=== PATIENT | male | born 1935 | race Caucasian/White ===

== ENCOUNTER 2016-11-05 16:17 | Inpatient (IN) | payer OTHER, MEDICARE ==
[2016-11-05] VITALS (10 sets, daily range): BP systolic 134–169; BP diastolic 57–70; PULSE 56–80; RESP 16–18; TEMP 97.1–98.2; O2SAT 95–99
[~2016-11-05] VITALS: Ht 170.2 cm; Wt 57.9 kg
[2016-11-05] MEDS ORDERED: DOXA1TAB43 PO (16:43)
[2016-11-05] MEDS ORDERED: LOSA100T PO (16:43)
[2016-11-05] MEDS ORDERED: DILT-64 PO (16:43)
--- NOTE | 2016-11-05 16:55 | PD ---
HPI Chief Complaint: Abnormal Results Time Seen by Provider: 16:50 Travel History International Travel<30 days: No Contact w/Intl Traveler<30days: No Traveled to known affect area: No History of Present Illness HPI 81-year-old male presents to the emergency department sent by his transit authority police officer, Dr. Whitehead, for hemoglobin of 6.2, GFR of 8. The patient states that he has felt "drugged" for quite a while. He denies any new symptoms. He does report history of bipolar blood and dark stools, but states this is an ongoing issue from hemorrhoids. The patient denies any fevers. No chest pain or shortness breath. No abdominal pain. No nausea or vomiting. He does complain of constipation. No diarrhea. Patient states he has been seeing Dr. Whitehead for kidney disease, but was told that he will probably need dialysis. PFSH Past Medical History Hypertension: Yes Inguinal Hernia: Yes Renal Failure: Yes (chronic kidney disease) Social History Alcohol Use: Yes (occassional) Tobacco Use: Yes Substance Use: No Allergies-Medications (Allergen,Severity, Reaction): Coded Allergies: No Known Allergies (Unverified , 11/05/16) Reported Meds & Prescriptions Reported Meds & Active Scripts Active Reported Diltiazem CD 24 HR 240 Mg Caper 240 Mg PO DAILY Losartan (Losartan Potassium) 100 Mg Tab 100 Mg PO DAILY Doxazosin (Doxazosin Mesylate) 8 Mg Tab 8 Mg PO DAILY Review of Systems Except as stated in HPI: all other systems reviewed are Neg Physical Exam Narrative GENERAL: Well-nourished, well-developed elderly male patient, afebrile. SKIN: Focused skin assessment warm/dry. HEAD: Normocephalic. Atraumatic. EYES: No scleral icterus. No injection or drainage. NECK: Supple, trachea midline. No JVD or lymphadenopathy. CARDIOVASCULAR: Regular rate and rhythm without murmurs, gallops, or rubs. RESPIRATORY: Breath sounds equal bilaterally. No accessory muscle use. Lungs sounds are clear to auscultation. GASTROINTESTINAL: Abdomen soft, non-tender, nondistended. MUSCULOSKELETAL: No cyanosis, or edema. BACK: Nontender without obvious deformity. No CVA tenderness. RECTAL EXAM: No masses or tenderness, stool is brown. Hemoccult is positive. Data Data Last Documented VS Vital Signs Date Time Temp Pulse Resp B/P Pulse Ox O2 Delivery O2 Flow Rate FiO2 11/05/16 16:51 56 18 146/63 95 Room Air 11/05/16 16:19 98.2 Orders Electrocardiogram (11/05/16 16:46) Complete Blood Count With Diff (11/05/16 16:46) Comprehensive Metabolic Panel (11/05/16 16:46) Magnesium (Mg) (11/05/16 16:46) Act Partial Throm Time (Ptt) (11/05/16 16:46) Prothrombin Time / Inr (Pt) (11/05/16 16:46) Ecg Monitoring (11/05/16 16:46) Iv Access Insert/Monitor (11/05/16 16:46) Oximetry (11/05/16 16:46) Sodium Chloride 0.9% Flush (Ns Flush) (11/05/16 17:00) Type And Screen (11/05/16 16:46) Pantoprazole Inj (Protonix Inj) (11/05/16 17:00) Red Blood Cells (Rbc) (11/05/16 17:57) Blood Product Administration .UPON TRANSFUSION (11/05/16 17:57) Sodium Chlor 0.9% 250 Ml Inj (Ns 250 Ml (11/05/16 18:00) Invasive Rad Dept Consult (11/05/16 ) Npo After Midnight W/ Po Meds (11/05/16 Dinner) Consult Nephrology (11/05/16 ) Admit To Inpatient (11/05/16 ) Vital Signs (Adult) Q4H (11/05/16 18:11) Activity Oob With Assistance (11/05/16 18:11) Diet Heart Healthy (11/05/16 Dinner) Sodium Chloride 0.9% Flush (Ns Flush) (11/05/16 18:15) Sodium Chloride 0.9% Flush (Ns Flush) (11/05/16 21:00) Acetaminophen (Tylenol) (11/05/16 18:15) Ondansetron Inj (Zofran Inj) (11/05/16 18:15) Basic Metabolic Panel (Bmp) (11/06/16 06:00) Complete Blood Count With Diff (11/06/16 06:00) Resp Oxygen Ritchie C Titrat 1-4 L (11/05/16 ) Scd Bilateral/Knee High MAK.BID (11/05/16 18:11) Naloxone Inj (Narcan Inj) (11/05/16 18:15) Docusate Sodium-Senna (Cara-Colace) (11/05/16 21:00) Magnesium Hydroxide Liq (Milk Of Magnesi (11/05/16 18:15) Sennosides (Senokot) (11/05/16 18:15) Bisacodyl Supp (Dulcolax Supp) (11/05/16 18:15) Lactulose Liq (Lactulose Liq) (11/05/16 18:15) Inpatient Certification (11/05/16 ) Admit Order (Ed Use Only) (11/05/16 18:13) Labs Laboratory Tests Test 11/05/16 17:00 White Blood Count 7.0 TH/MM3 Red Blood Count 2.36 MIL/MM3 Hemoglobin 5.8 GM/DL Hematocrit 18.6 % Mean Corpuscular Volume 78.8 FL Mean Corpuscular Hemoglobin 24.8 PG Mean Corpuscular Hemoglobin 31.5 % Concent Red Cell Distribution Width 18.6 % Platelet Count 269 TH/MM3 Mean Platelet Volume 9.2 FL Neutrophils (%) (Auto) 69.9 % Lymphocytes (%) (Auto) 19.1 % Monocytes (%) (Auto) 8.5 % Eosinophils (%) (Auto) 1.0 % Basophils (%) (Auto) 1.5 % Neutrophils # (Auto) 4.9 TH/MM3 Lymphocytes # (Auto) 1.3 TH/MM3 Monocytes # (Auto) 0.6 TH/MM3 Eosinophils # (Auto) 0.1 TH/MM3 Basophils # (Auto) 0.1 TH/MM3 CBC Comment AUTO DIFF Prothrombin Time 11.5 SEC Prothromb Time International 1.0 RATIO Ratio Activated Partial 23.3 SEC Thromboplast Time Sodium Level 135 MEQ/L Potassium Level 4.7 MEQ/L Chloride Level 105 MEQ/L Carbon Dioxide Level 19.0 MEQ/L Anion Gap 11 MEQ/L Blood Urea Nitrogen 97 MG/DL Creatinine 5.60 MG/DL Estimat Glomerular Filtration 10 ML/MIN Rate Random Glucose 117 MG/DL Calcium Level 8.6 MG/DL Magnesium Level 3.2 MG/DL Total Bilirubin 0.2 MG/DL Aspartate Amino Transf 9 U/L (AST/SGOT) Alanine Aminotransferase 17 U/L (ALT/SGPT) Alkaline Phosphatase 75 U/L Total Protein 6.7 GM/DL Albumin 3.4 GM/DL MDM Medical Decision Making Medical Screen Exam Complete: Yes Emergency Medical Condition: Yes Medical Record Reviewed: Yes Differential Diagnosis GI bleed versus anemia of chronic disease versus renal failure Narrative Course 81-year-old male presents to the emergency department sent by his transit authority police officer, Dr. Whitehead. EKG, CBC, CMP, magnesium, PTT, PTT/INR, type and screen are ordered and pending. Patient is given Protonix 40 mg IV. EKG shows Sinus bradycardia, HR 55, no acute ST changes. CBC shows hemoglobin of 5.8, hematocrit 18.6. CMP shows the BUN 97, creatinine 5.60. Magnesium is 3.2. Coags show no acute abnormality. I spoke with Dr. Whitehead who recommended admission, consult IR for permcath placement in the AM. He would like the patient to receive 1 unit PRBCs now and will receive the rest at dialysis tomorrow. The patient is to be NPO after midnight. [facility] is paged for admission. Dr. Claudio accepted admission. [facility] Point of Care Internal Pos. & Neg. Controls: Passed Fecal Specimen Occult Blood: Positive Diagnosis Primary Impression: Kidney failure, acute Qualified Code: N17.9 - Acute renal failure, unspecified acute renal failure type Additional Impression: Anemia Qualified Code: D64.89 - Anemia due to other cause, not classified Admitting Information Admitting Physician Requests: Admit Judie Frias Nov 05, 2016 16:55
[2016-11-05] MEDS ORDERED: SODIUM CHLORIDE 0.9% FLUSH 10 ML FLUSH IVF PRN (17:00)
[2016-11-05] MEDS ORDERED: PANTOPRAZOLE SODIUM 40 MG VIAL IV PUSH ONE (17:00)
[2016-11-05 17:40] LABS: AUTOMATED NEUTROPHIL # 4.9 TH/MM3 (1.8-7.7); BASOPHIL # 0.1 TH/MM3 (0-0.2); BASOPHIL % 1.5 % (0.0-2.0); EOSINOPHIL # 0.1 TH/MM3 (0-0.4); LYMPH % 19.1 % (9.0-44.0); LYMPHOCYTE # 1.3 TH/MM3 (1.0-4.8); MEAN CELL VOLUME 78.8 FL (80.0-100.0); MEAN CORPUSCULAR HEMOGLOBIN 24.8 PG (27.0-34.0); MEAN CORPUSCULAR HGB CONC 31.5 % (32.0-36.0); MONO % 8.5 % (0.0-8.0); NEUT % 69.9 % (16.0-70.0); PLATELET COUNT 269 TH/MM3 (150-450); RED BLOOD COUNT 2.36 MIL/MM3 (4.50-5.90); RED CELL DISTRIBUTION WIDTH 18.6 % (11.6-17.2)
[2016-11-05 17:43] LABS: HEMO FLAGS AUTO DIFF
[2016-11-05 17:44] LABS: HEMATOCRIT 18.6 % (39.0-51.0)
[2016-11-05 17:48] LABS: APTT (PATIENT) 23.3 SEC (24.3-30.1); PROTHROMBIN TIME - PATIENT 11.5 SEC (9.8-11.6)
[2016-11-05 17:56] LABS: ANION GAP 11 MEQ/L (5-15); AST (GOT) 9 U/L (15-37); BLOOD UREA NITROGEN 97 MG/DL (7-18); CHLORIDE 105 MEQ/L (98-107); GLOMERULAR FILTRATION RATE 10 ML/MIN (>89); MAGNESIUM 3.2 MG/DL (1.5-2.5); POTASSIUM 4.7 MEQ/L (3.5-5.1); SODIUM (NA) 135 MEQ/L (136-145)
[2016-11-05 17:57] LABS: ALT (GPT) 17 U/L (12-78)
[2016-11-05 18:00] LABS: ALKALINE PHOSPHATASE 75 U/L (45-117); TOTAL BILIRUBIN ADULT 0.2 MG/DL (0.2-1.0)
[2016-11-05] MEDS ORDERED: SODIUM CHLOR 0.9% 250 ML INJ 250 ML IV ONE (18:00)
[2016-11-05] MEDS ORDERED: SODIUM CHLORIDE 0.9% FLUSH 10 ML FLUSH IV FLUSH PRN (18:15)
[2016-11-05] MEDS ORDERED: SENNOSIDES 8.6 MG TAB PO PRN (18:15)
[2016-11-05] MEDS ORDERED: NALOXONE HCL 0.4 MG/ML AMP IV PRN (18:15)
[2016-11-05] MEDS ORDERED: ACETAMINOPHEN 325 MG TAB PO PRN (18:15)
[2016-11-05] MEDS ORDERED: LACTULOSE SYRUP 20 GM/30 ML CUP PO PRN (18:15)
[2016-11-05] MEDS ORDERED: BISACODYL 10 MG SUPP RECTAL PRN (18:15)
[2016-11-05] MEDS ORDERED: ONDANSETRON HCL 4 MG/2 ML VIAL IVP PRN (18:15)
[2016-11-05] MEDS ORDERED: MAGNESIUM HYDROXIDE SUSP 30 ML CUP PO PRN (18:15)
[2016-11-05 18:22] LABS: SCAN/DIFF AUTO DIFF CONFIRMED
--- NOTE | 2016-11-05 19:38 | HHI.HP ---
HPI Service [facility] Primary Care Physician Hari Huston MD Admission Diagnosis renal failure, anemia Diagnoses: Chief Complaint: Symptomatic anemia. Travel History International Travel<30 Days: No Contact w/Intl Traveler <30 Da: No Traveled to Known Affected Are: No History of Present Illness Mr. Calderon is a pleasant 81 year old male with a history of CKD who presented to the ED on the advise of his certified travel counselor due to hemoglobin around 6 and GFR 8. Patient reports several weeks of fatigue but particularly in the past 7 days or so. He reports bloody stool which he attributes to hemorrhoids. He denies any fever but reports chills. He also repots some shortness of breath but no chest pain. He denies any cough, abdominal pain. On arrival, Na 135, K 4.7, BUN 97, Cr. 5.6, eGFR 10. WBC 7, Hgb 5.8. Temp 98.2, Pulse 80, Resp rate 16, BP 135 /57, O2 sat 98% on room air. Review of Systems Except as stated in HPI: all other systems reviewed are Neg Past Family Social History Past Medical History ESRD HTN Anemia Past Surgical History Hernia repair 2009 Reported Medications Diltiazem CD 24 HR 240 Mg Caper 240 Mg PO DAILY Losartan (Losartan Potassium) 100 Mg Tab 100 Mg PO DAILY Doxazosin (Doxazosin Mesylate) 8 Mg Tab 8 Mg PO DAILY Allergies: Coded Allergies: No Known Allergies (Unverified , 11/05/16) Family History Brother from cancer at the age of 16. Social History Uses alcohol occasionally. Smokes 1 ppd. Physical Exam Vital Signs Vital Signs Date Time Temp Pulse Resp B/P Pulse Ox O2 Delivery O2 Flow Rate FiO2 11/05/16 19:25 98.1 61 16 134/63 97 Room Air 11/05/16 19:20 98.0 58 16 137/64 96 Room Air 11/05/16 18:19 96 21 11/05/16 16:51 56 18 146/63 95 Room Air 11/05/16 16:35 68 16 97 Room Air 11/05/16 16:19 98.2 80 16 135/57 98 Physical Exam GENERAL: This is a well-nourished, well-developed patient, in no apparent distress. Appears somewhat pale. SKIN: No rashes, ecchymoses or lesions. Warm and dry. HEAD: Atraumatic. Normocephalic. No temporal or scalp tenderness. EYES: Pupils equal round and reactive. No injection or drainage. ENT: Nose without bleeding, purulent drainage or septal hematoma. Airway patent. NECK: Trachea midline. No lymphadenopathy. Supple, nontender, no meningeal signs. CARDIOVASCULAR: Regular rate and rhythm without murmurs, gallops, or rubs. No JVD. RESPIRATORY: Clear to auscultation. Breath sounds equal bilaterally. No wheezes , rales, or rhonchi. GASTROINTESTINAL: Abdomen soft, non-tender, nondistended. No guarding. MUSCULOSKELETAL: Extremities without clubbing, cyanosis, or edema. NEUROLOGICAL: Awake and alert. Cranial nerves II through XII intact. No focal neurological deficits. Normal speech. Laboratory Laboratory Tests Test 11/05/16 11/05/16 17:00 18:05 White Blood Count 7.0 Red Blood Count 2.36 Hemoglobin 5.8 Hematocrit 18.6 Mean Corpuscular Volume 78.8 Mean Corpuscular Hemoglobin 24.8 Mean Corpuscular Hemoglobin 31.5 Concent Red Cell Distribution Width 18.6 Platelet Count 269 Mean Platelet Volume 9.2 Neutrophils (%) (Auto) 69.9 Lymphocytes (%) (Auto) 19.1 Monocytes (%) (Auto) 8.5 Eosinophils (%) (Auto) 1.0 Basophils (%) (Auto) 1.5 Neutrophils # (Auto) 4.9 Lymphocytes # (Auto) 1.3 Monocytes # (Auto) 0.6 Eosinophils # (Auto) 0.1 Basophils # (Auto) 0.1 CBC Comment AUTO DIFF Differential Comment AUTO DIFF CONFIRMED Prothrombin Time 11.5 Prothromb Time International 1.0 Ratio Activated Partial 23.3 Thromboplast Time Sodium Level 135 Potassium Level 4.7 Chloride Level 105 Carbon Dioxide Level 19.0 Anion Gap 11 Blood Urea Nitrogen 97 Creatinine 5.60 Estimat Glomerular Filtration 10 Rate Random Glucose 117 Calcium Level 8.6 Magnesium Level 3.2 Total Bilirubin 0.2 Aspartate Amino Transf 9 (AST/SGOT) Alanine Aminotransferase 17 (ALT/SGPT) Alkaline Phosphatase 75 Total Protein 6.7 Albumin 3.4 Blood Type O POSITIVE O POSITIVE Antibody Screen NEGATIVE Blood Bank Comment Crossmatch Leukocyte-Reduced Red Blood Cells Result Diagram: 11/05/16 1700 11/05/16 1700 Assessment and Plan Problem List: (1) Symptomatic anemia ICD Code: D64.9 Status: Acute (2) Anemia in chronic kidney disease (CKD) ICD Code: N18.9 Status: Acute (3) ESRD (end stage renal disease) ICD Code: N18.6 Status: Acute (4) Tobacco abuse ICD Code: Z72.0 Status: Acute Assessment and Plan Mr. Calderon is a pleasant 81 year old male with a history of CKD, probably at least stage IV who was sent to the ED by his certified travel counselor's office after blood work indicated anemia with Hgb around 6 and GFR below 10. Patient reports fatigue for the last several weeks, especially pronounced in the last one week. - Symptomatic anemia - Anemia in CKD - Patient will receive one unit of PRBCs. - IR consult for Permacath placement and possibly additional transfusion on . - Suspected CKD stage IV or higher. - Acute ESRD - GFR 10. - Nephrology consult pending. - Permacath tomorrow and likely dialysis tomorrow. - Hypertension - Will initiate Nifedipine 30mg Qday. - If BP continues to be elevated, we can use clonidine 0.1mg TID PRN. - Tobacco abuse - Patient was counselled. However, he appears to be content with his smoking habits. Full code. SCDs. Will consider heparin SQ after Permacath placement. Physician Certification 2 Midnight Certification Type: Admission for Inpatient Services Order for Inpatient Services The services are ordered in accordance with Medicare regulations or non- Medicare payer requirements, as applicable. In the case of services not specified as inpatient-only, they are appropriately provided as inpatient services in accordance with the 2-midnight benchmark. Estimated LOS (days): 2 days is the estimated time the patient will need to remain in the hospital, assuming treatment plan goals are met and no additional complications. Post-Hospital Plan: Home Alexia Claudio DO Nov 05, 2016 19:37
[2016-11-05] MEDS: SODIUM CHLORIDE 0.9% FLUSH 10 ML FLUSH IV FLUSH SCH (21:00)
[2016-11-05] MEDS: DOCUSATE SODIUM 50 MG/SENNA 8.6 MG TAB PO SCH (23:29)
[2016-11-06] VITALS (7 sets, daily range): BP systolic 117–164; BP diastolic 58–70; PULSE 66–108; RESP 14–17; TEMP 96.3–97.9; O2SAT 95–97
[2016-11-06 07:17] LABS: AUTOMATED NEUTROPHIL # 4.9 TH/MM3 (1.8-7.7); BASOPHIL # 0.1 TH/MM3 (0-0.2); BASOPHIL % 1.3 % (0.0-2.0); EOSINOPHIL # 0.6 TH/MM3 (0-0.4); LYMPH % 19.3 % (9.0-44.0); LYMPHOCYTE # 1.5 TH/MM3 (1.0-4.8); MEAN CELL VOLUME 78.6 FL (80.0-100.0); MEAN CORPUSCULAR HEMOGLOBIN 26.1 PG (27.0-34.0); MEAN CORPUSCULAR HGB CONC 33.2 % (32.0-36.0); MONO % 9.7 % (0.0-8.0); NEUT % 62.7 % (16.0-70.0); PLATELET COUNT 242 TH/MM3 (150-450); RED BLOOD COUNT 2.53 MIL/MM3 (4.50-5.90); RED CELL DISTRIBUTION WIDTH 17.7 % (11.6-17.2); WHITE BLOOD COUNT 7.9 TH/MM3 (4.0-11.0)
[2016-11-06 07:22] LABS: HEMO FLAGS DIFF FINAL
[2016-11-06 07:27] LABS: HEMATOCRIT 19.9 % (39.0-51.0)
[2016-11-06 07:41] LABS: BICARBONATE 23.5 MEQ/L (21.0-32.0); POTASSIUM 4.4 MEQ/L (3.5-5.1)
[2016-11-06] MEDS ORDERED: SODIUM CHLOR 0.9% 250 ML INJ 250 ML IV ONE (07:45)
[2016-11-06] MEDS ORDERED: ACETAMINOPHEN 325 MG TAB PO PRN ×2 (07:45→10:45)
[2016-11-06] MEDS ORDERED: diphenhydrAMINE HCL 25 MG CAP PO PRN ×2 (07:45→10:45)
[2016-11-06] MEDS: DOCUSATE SODIUM 50 MG/SENNA 8.6 MG TAB PO SCH ×2 (08:17→19:47)
[2016-11-06] MEDS: NIFEdipine 30 MG SUSTAINED RELEASE TAB PO SCH (08:17)
[2016-11-06] MEDS: SODIUM CHLORIDE 0.9% FLUSH 10 ML FLUSH IV FLUSH SCH ×2 (08:29→19:48)
[2016-11-06] MEDS ORDERED: VANCOMYCIN INJ 1,000 MG in SODIUM CHLOR 0.9% 250 ML INJ 250 ML IV SCH (08:30)
[2016-11-06] MEDS ORDERED: ceFAZolin 2 GM PREMIX 50 ML IV SCH (08:30)
[2016-11-06] MEDS ORDERED: SODIUM CHLOR 0.9% 1000 ML INJ 1,000 ML IV PRN ×3 (10:39)
--- NOTE | 2016-11-06 10:39 | PD.CONS ---
[facility] Service nephrology Consult Requested By Rodriguez Reason for Consult Renal failure, needs dialysis Primary Care Physician Hari Huston MD History of Present Illness This is a 81 y/o male who we were following for CKD stage 4. He was seen in October of 2015, then was lost to follow up until recently. He has lab work outpatient that showed he had reached CKD 5 and had severe anemia with Hb around 5, therefore we referred for admission. He is reporting extreme fatigue, itching, nausea, constipation. He lives alone and has been so weak unable to care for self. Since arrival he has received one unit PRBC. We were consulted for renal management and to initiate dialysis. He is a full code. (Elizabeth Foley) Review of Systems Constitutional: COMPLAINS OF: Fatigue, Change in appetite, DENIES: Fever Eyes: DENIES: Blurred vision Respiratory: DENIES: Shortness of breath Cardiovascular: DENIES: Chest pain Gastrointestinal: COMPLAINS OF: Black stools, Constipation, DENIES: Abdominal pain Integumentary: COMPLAINS OF: Pruritus (Elizabeth Foley) Past Family Social History Allergies: Coded Allergies: No Known Allergies (Unverified , 11/05/16) Past Medical History CKD Stage IV HTN Anemia Past Surgical History Hernia Reported Medications Diltiazem CD 24 HR 240 Mg Caper 240 Mg PO DAILY Losartan (Losartan Potassium) 100 Mg Tab 100 Mg PO DAILY Doxazosin (Doxazosin Mesylate) 8 Mg Tab 8 Mg PO DAILY Active Ordered Medications Current Medications Medications (Trade) Dose Ordered Sig/Ramiro Route Start Time Stop Time Status Last Admin (NS 250 ml Inj) 250 ml @ 15 mls/hr ONCE ONCE IV 11/05/16 18:00 11/06/16 10:39 11/05/16 19:26 (NS Flush) 2 ml UNSCH PRN IV FLUSH 11/05/16 18:15 (NS Flush) 2 ml BID IV FLUSH 11/05/16 21:00 11/06/16 08:29 (Tylenol) 650 mg Q4H PRN PO 11/05/16 18:15 (Zofran Inj) 4 mg Q6H PRN IVP 11/05/16 18:15 (Narcan Inj) 0.4 mg UNSCH PRN IV 11/05/16 18:15 (Cara-Colace) 1 tab BID PO 11/05/16 21:00 11/06/16 08:17 (Milk Of Magnesia Liq) 30 ml Q12H PRN PO 11/05/16 18:15 11/06/16 08:19 (Senokot) 17.2 mg Q12H PRN PO 11/05/16 18:15 11/06/16 08:18 (Dulcolax Supp) 10 mg DAILY PRN RECTAL 11/05/16 18:15 (Lactulose Liq) 30 ml DAILY PRN PO 11/05/16 18:15 11/06/16 08:19 Nifedipine 30 mg 30 mg DAILY PO 11/06/16 09:00 11/06/16 08:17 (NS 250 ml Inj) 250 ml @ 15 mls/hr ONCE ONCE IV 11/06/16 07:45 11/07/16 00:24 (Tylenol) 650 mg Q4H PRN PO 11/06/16 07:45 11/06/16 11:46 (Benadryl) 25 mg Q4H PRN PO 11/06/16 07:45 11/06/16 11:46 Family History No hx of renal disorders Social History Non smoking , lives alone Has a son that is local ambulatory but needs assistance full code retired (Elizabeth Foley) Physical Exam Vital Signs Vital Signs Date Time Temp Pulse Resp B/P Pulse Ox O2 Delivery O2 Flow Rate FiO2 11/06/16 09:43 96 21 11/06/16 08:00 96.3 66 14 160/70 95 11/06/16 04:07 97.3 68 16 151/70 95 11/05/16 23:45 97.1 58 16 159/70 97 11/05/16 21:03 98.2 61 16 169/70 99 11/05/16 20:25 98 11/05/16 19:45 64 16 134/62 96 Room Air 11/05/16 19:35 61 16 135/60 97 Room Air 11/05/16 19:25 98.1 61 16 134/63 97 Room Air 11/05/16 19:20 98.0 58 16 137/64 96 Room Air 11/05/16 18:19 96 21 11/05/16 16:51 56 18 146/63 95 Room Air 11/05/16 16:35 68 16 97 Room Air 11/05/16 16:19 98.2 80 16 135/57 98 Physical Exam Elderly male, awake and alert no neuro deficit Lungs: clear CV: S1/S2, regular rate and rhythm Abd: soft, non tender, normal bowel sounds Ext: no edema, pulses adequate Laboratory Laboratory Tests Test 11/05/16 11/05/16 11/06/16 11/06/16 17:00 18:05 06:35 07:43 White Blood Count 7.0 7.9 Red Blood Count 2.36 2.53 Hemoglobin 5.8 6.6 Hematocrit 18.6 19.9 Mean Corpuscular Volume 78.8 78.6 Mean Corpuscular Hemoglobin 24.8 26.1 Mean Corpuscular Hemoglobin 31.5 33.2 Concent Red Cell Distribution Width 18.6 17.7 Platelet Count 269 242 Mean Platelet Volume 9.2 8.8 Neutrophils (%) (Auto) 69.9 62.7 Lymphocytes (%) (Auto) 19.1 19.3 Monocytes (%) (Auto) 8.5 9.7 Eosinophils (%) (Auto) 1.0 7.0 Basophils (%) (Auto) 1.5 1.3 Neutrophils # (Auto) 4.9 4.9 Lymphocytes # (Auto) 1.3 1.5 Monocytes # (Auto) 0.6 0.8 Eosinophils # (Auto) 0.1 0.6 Basophils # (Auto) 0.1 0.1 CBC Comment AUTO DIFF DIFF FINAL Differential Comment AUTO DIFF CONFIRMED Prothrombin Time 11.5 Prothromb Time International 1.0 Ratio Activated Partial 23.3 Thromboplast Time Sodium Level 135 141 Potassium Level 4.7 4.4 Chloride Level 105 109 Carbon Dioxide Level 19.0 23.5 Anion Gap 11 9 Blood Urea Nitrogen 97 92 Creatinine 5.60 4.98 Estimat Glomerular Filtration 10 11 Rate Random Glucose 117 85 Calcium Level 8.6 8.5 Magnesium Level 3.2 Total Bilirubin 0.2 Aspartate Amino Transf 9 (AST/SGOT) Alanine Aminotransferase 17 (ALT/SGPT) Alkaline Phosphatase 75 Total Protein 6.7 Albumin 3.4 Blood Type O POSITIVE O POSITIVE O POSITIVE Antibody Screen NEGATIVE Blood Bank Comment Crossmatch Leukocyte-Reduced Leukocyte-Reduced Red Blood Red Blood Cells Cells (Elizabeth Foley) Result Diagram: 11/06/16 0635 11/06/1635 Assessment and Plan Problem List: (1) ESRD (end stage renal disease) Plan: He has reached ESRD and is in need of starting dialysis we discussed different modalities but the patient is concerned that he is unable to perform PD on his own therefore we will begin hemodialysis IR consulted for Permcath today HD today, repeat tomorrow he is not fluid overloaded consult vascular for AVF placement, vein mapping ordered, avoid right arm procedures/IV sticks check phosphorus level in am (2) Anemia Plan: multifactorial, suspected anemia of chronic disease microcytic, check iron profile transfusion ordered, give during dialysis if not given already likely will need to rule out GI bleeding follow Hb begin Epogen with dialysis He also may have plasma cell dyscrasia per urine immunofixation performed outpatient may need hematology evaluation this hospitalization (3) HTN (hypertension) Plan: continue home medications (Elizabeth Foley) Assessment and Plan patient was seen and examined. Long discussion with the patient. Severe anemia ( microcytic) is noted. Rule out iron deficiency and occult bleeding. He appears to have symptoms of uremia. Initiate dialysis. Discussed with Dr. Amaral regarding AVF placement. Patient thinks that he is unable to do PD. (Anuj Whitehead MD) Problem Qualifiers (1) Anemia: Qualified Code: D64.89 - Anemia due to other cause, not classified Elizabeth Foley Nov 06, 2016 10:39 Anuj Whitehead MD Nov 06, 2016 14:36
[2016-11-06] MEDS ORDERED: GELATIN 12 MM/7 MM FOAM TOP PRN (10:45)
[2016-11-06] MEDS ORDERED: MANNITOL 12.5 GM/50 ML VIAL IV PRN (10:45)
[2016-11-06] MEDS ORDERED: cloNIDine HCL 0.1 MG TAB PO PRN (10:45)
[2016-11-06] MEDS ORDERED: NITROGLYCERIN 0.4 MG SL 25 TABS/BTL SL PRN (10:45)
[2016-11-06] MEDS ORDERED: ALBUMIN HUMAN 25% 25 GM/100 ML BAGP IV PRN (10:45)
[2016-11-06] MEDS ORDERED: ONDANSETRON HCL 4 MG/2 ML VIAL IV PRN (10:45)
[2016-11-06] MEDS ORDERED: SODIUM CHLORIDE 0.9% FLUSH 10 ML FLUSH IV FLUSH PRN (10:45)
[2016-11-06] MEDS ORDERED: HEPARIN SODIUM - IV 10,000 UNITS/10 ML VIAL IVF PRN (10:45)
[2016-11-06] MEDS ORDERED: LIDOCAINE 1%/EPINEPHrine 1:100,000 SOLN 20 ML VIAL ONE (11:15)
[2016-11-06] MEDS ORDERED: SODIUM CHLORIDE 0.9% FLUSH 10 ML FLUSH IVF PRN (11:45)
[2016-11-06] MEDS ORDERED: HEPARIN SODIUM - IV 2,000 UNITS/2 ML VIAL IV FLUSH PRN (11:45)
--- NOTE | 2016-11-06 11:47 | PD.RAD ---
Post Procedure Progress Note Pre Procedure Diagnosis: (1) Kidney failure, acute Post Procedure Diagnosis: (1) Kidney failure, acute Procedure Date: Nov 06, 2016 Supervising Radiologist: Jacobo Crowell Proceduralist/Assist: Ambar Pat RT(R), RT Sctot(R)() Anesthesia: Local Plan of Activity Patient to Unit: Nursing Unit Patient Condition: Good See PACS Report for procedural detail/treatment Jacobo Crowell MD Nov 06, 2016 11:47
[2016-11-06] MEDS: EPOETIN ALFA 10,000 UNITS/ML VIAL IV PRN (13:51)
[2016-11-06] MEDS: GENTAMICIN SULFATE (DIALYSIS USE ONLY) 20 MG/2 ML VIAL IV PRN (13:52)
[2016-11-06] MEDS: HEPARIN SODIUM - IV 10,000 UNITS/10 ML VIAL PRN (13:52)
--- NOTE | 2016-11-06 14:01 | RADRPT ---
EXAM DATE/TIME: 11/06/2016 11:25 [facility] COMPARISON: No previous studies available for comparison. INDICATIONS : Patient with history of end-stage renal disease in need of tunnelled dialysis catheter placement. MEDICAL HISTORY : ESRD, CKD, HTN, Anemia SURGICAL HISTORY : Hernia repair 2009 ENCOUNTER: Initial ACUITY: 1 week PAIN SCORE: 0/10 FLUORO TIME: 0.9 minutes IMAGE SERIES: 0 ACCESS: Right internal jugular vein Prophylactic antibiotics were administered with appropriate pre-procedure timing. Vancomycin within 2 hours of procedure, Ancef (or alternative) within 1 hour of procedure. DEVICE: 1. 15 Vietnamese dual lumen 23 cm العراقي II Plus catheter PROCEDURE : 1. Ultrasound-guided venipuncture. 2. PermaCath placement. 3. Conscious sedation with continuous EKG and oximetry monitoring. The risks, benefits and alternatives to the procedure were explained and verbal and written consent w as obtained. The site was prepped in sterile fashion. Full sterile technique was used, including ca p, mask, sterile gloves and gown and a large sterile sheet. Hand hygiene and 2% chlorhexidine and/or betadine/alcohol prep was utilized per protocol for cutaneous antisepsis. The skin and subcutaneous tissues were infiltrated with local anesthetic solution. With ultrasound and fluoroscopic guidance a dermatotomy was created over the prescribed vein. A micr opuncture set was used to access the targeted vein and serial dilatation was performed to accept the prescribed length catheter. A subcutaneous tunnel was created in a retrograde fashion the catheter w as pulled through the tunnel. The catheter was flushed and assembled and locked with heparin. The c atheter was sutured in place. Conscious sedation was performed with the prescribed dosages and duration as above in the presence of an independent trained radiology nurse to assist in the monitoring of the patient. EKG and oximetry remained stable throughout the procedure. The patient tolerated the procedure well and there were n o complications. The patient was sent to post anesthesia recovery in stable condition. CONCLUSION: Uncomplicated PermaCath placement as above. Jacobo Crowell MD on November 06, 2016 at 13:59 Board Certified Radiologist. This report was verified electronically.
--- NOTE | 2016-11-06 17:08 | EKG ---
Date Performed: 11/05/2016 Time Performed: 17:02:44 PTAGE: 81 years EKG: SINUS BRADYCARDIA MODERATE INTRAVENTRICULAR CONDUCTION DELAY BORDERLINE ECG NO PREVIOUS TRACING DOCTOR: Rayne Johnson Interpretating Date/Time 11/06/2016 17:06:01
--- NOTE | 2016-11-06 18:59 | HHI.PR ---
Subjective Remarks Follow up for symptomatic anemia, ESRD. Patient returned from dialysis. He received two units of PRBCs during dialysis. In the room, he is ambulating well and had BM. No fever, chills. Denies any shortness of breath, chest pain. Objective Vitals Vital Signs Date Time Temp Pulse Resp B/P Pulse Ox O2 Delivery O2 Flow Rate FiO2 11/06/16 17:47 96 21 11/06/16 16:00 96.4 108 14 117/58 96 11/06/16 10:45 97.8 75 15 164/70 97 11/06/16 09:43 96 21 11/06/16 08:00 96.3 66 14 160/70 95 11/06/16 04:07 97.3 68 16 151/70 95 11/05/16 23:45 97.1 58 16 159/70 97 11/05/16 21:03 98.2 61 16 169/70 99 11/05/16 20:25 98 11/05/16 19:45 64 16 134/62 96 Room Air 11/05/16 19:35 61 16 135/60 97 Room Air 11/05/16 19:25 98.1 61 16 134/63 97 Room Air 11/05/16 19:20 98.0 58 16 137/64 96 Room Air I/O 11/05/16 11/05/16 11/05/16 11/06/16 11/06/16 11/06/16 07:00 15:00 23:00 07:00 15:00 23:00 Intake Total 240 ml 360 ml 480 ml Output Total 150 ml 450 ml 2250 ml Balance 90 ml -90 ml -1770 ml Intake Oral 240 ml 360 ml 480 ml Output Urine Total 150 ml 450 ml 250 ml Hemodialysis 2000 ml # Voids 1 # Bowel Movements 2 Result Diagram: 11/06/16 0635 11/06/16 0635 Imaging Last Impressions Catheter Placement X-Ray 11/06/16 0000 Signed Impressions: Service Date/Time: Sunday, November 06, 2016 11:25 - CONCLUSION: Uncomplicated PermaCath placement as above. Jacobo Crowell MD Objective Remarks GENERAL: AOx3, NAD. SKIN: Warm and dry. HEAD: Normocephalic. EYES: No scleral icterus. No injection or drainage. NECK: Supple, trachea midline. No JVD or lymphadenopathy. CARDIOVASCULAR: Regular rate and rhythm without murmurs, gallops, or rubs. RESPIRATORY: Breath sounds equal bilaterally. No accessory muscle use. GASTROINTESTINAL: Abdomen soft, non-tender, nondistended. MUSCULOSKELETAL: No cyanosis, or edema. BACK: Nontender without obvious deformity. No CVA tenderness. Procedures Permcath placed by IR on 11/06/2016. A/P Problem List: (1) Symptomatic anemia ICD Code: D64.9 Status: Acute (2) Anemia in chronic kidney disease (CKD) ICD Code: N18.9 Status: Acute (3) ESRD (end stage renal disease) ICD Code: N18.6 Status: Acute (4) Tobacco abuse ICD Code: Z72.0 Status: Acute Assessment and Plan Mr. Calderon is a pleasant 81 year old male with a history of CKD, probably at least stage IV who was sent to the ED by his cell pourer's office after blood work indicated anemia with Hgb around 6 and GFR below 10. Patient reports fatigue for the last several weeks, especially pronounced in the last one week prior to this admission. Patient underwent Permcath placement and subsequently first dialysis on 11/06/2016. - Symptomatic anemia - Anemia in CKD - ESRD - Patient has received 3 units of PRBCs so far. - IR consult for Permcath placement and possibly additional transfusion on . - Nephrology following. - Epogen started by Nephrology. Patient will likely need Iron supplements, preferably after colonoscopy is performed. - Probable GI bleed Iron deficiency anemia. - Ferritin level 14. - Will consult GI for need for Colonoscopy. - Once Colonoscopy is done, we can start patient on Iron supplements. - Hypertension - Continue Nifedipine 30mg Qday. - Tobacco abuse - Patient was counselled. However, he appears to be content with his smoking habits. Full code. SCDs. Alexia Claudio DO Nov 06, 2016 18:59
[2016-11-07] VITALS (8 sets, daily range): BP systolic 112–169; BP diastolic 57–74; PULSE 68–91; RESP 16–18; TEMP 95.9–98.1; O2SAT 93–98
--- NOTE | 2016-11-07 00:11 | RADRPT ---
EXAM DATE/TIME: 11/06/2016 23:04 [facility] COMPARISON: No previous studies available for comparison. INDICATIONS : AVF placement. MEDICAL HISTORY : Hypertension. Renal failure. Chronic kidney disease. Inguinal hernia. Arthritis. Pruritis. Anemia. SURGICAL HISTORY : None. ENCOUNTER: Initial ACUITY: 1 day PAIN SCORE: 0/10 LOCATION: Bilateral arms. FINDINGS: RIGHT UPPER EXTREMITY: There is spontaneous flow documented in the brachial, basilic, cephalic, axillary, and subclavian vei ns. The vessels are compressible and augmentation response is documented. No filling defects are se en. The flow is phasic with respiration. Direction of flow in the jugular vein is caudal. LEFT UPPER EXTREMITY: There is spontaneous flow documented in the brachial, basilic, cephalic, axillary, and subclavian vei ns. The vessels are compressible and augmentation response is documented. No filling defects are se en. The flow is phasic with respiration. Direction of flow in the jugular vein is caudal. CONCLUSION: No evidence of DVT of either upper extremity. There is a right subclavian central venous catheter. Martin Pillai MD on November 07, 2016 at 0:09 Board Certified Radiologist. This report was verified electronically.
--- NOTE | 2016-11-07 00:13 | RADRPT ---
EXAM DATE/TIME: 11/06/2016 23:19 [facility] COMPARISON: No previous studies available for comparison. INDICATIONS : AVF placement. MEDICAL HISTORY : Hypertension. Renal failure. Chronic kidney disease. Inguinal hernia. Arthritis. Pruritis. Anemia. SURGICAL HISTORY : None. ENCOUNTER: Initial ACUITY: 1 day PAIN SCORE: 0/10 LOCATION: Bilateral arms. CEPHALIC: ORIGIN: Right 1 mm Left 1 mm MID-ARM: Right 2 mm Left 1 mm ELBOW: Right 2 mm Left Non-visualized FOREARM: Right 1 mm Left Non-visualized WRIST: Right 1 mm Left Non-visualized BASILIC: ORIGIN: Right 5 mm Left 3 mm MID-ARM: Right 1 mm Left 2 mm ELBOW: Right 2 mm Left 2 mm ARTERIES: BRACHIAL: Right 5 mm Left 5 mm ULNAR: Right 2 mm Left 2 mm RADIAL: Right 2 mm Left 3 mm VEINS: RADIAL: Right 1 mm Left 1 mm ULNAR: Right 1 mm Left 1 mm FINDINGS: The venous system of the upper extremities are patent by color Doppler imaging. Measurements of the arm veins (in mm) are listed above. CONCLUSION: Bilateral upper extremity venous mapping measurements as above. Martin Pillai MD on November 07, 2016 at 0:10 Board Certified Radiologist. This report was verified electronically.
[2016-11-07 06:24] LABS: AUTOMATED NEUTROPHIL # 5.9 TH/MM3 (1.8-7.7); BASOPHIL # 0.1 TH/MM3 (0-0.2); BASOPHIL % 1.4 % (0.0-2.0); EOSINOPHIL # 0.3 TH/MM3 (0-0.4); EOSINOPHIL % 3.4 % (0.0-4.0); HEMATOCRIT 31.3 % (39.0-51.0); HEMO FLAGS DIFF FINAL; LYMPH % 17.5 % (9.0-44.0); LYMPHOCYTE # 1.6 TH/MM3 (1.0-4.8); MEAN CORPUSCULAR HEMOGLOBIN 26.4 PG (27.0-34.0); MEAN CORPUSCULAR HGB CONC 33.4 % (32.0-36.0); MONO % 12.9 % (0.0-8.0); NEUT % 64.8 % (16.0-70.0); PLATELET COUNT 219 TH/MM3 (150-450); RED BLOOD COUNT 3.96 MIL/MM3 (4.50-5.90); RED CELL DISTRIBUTION WIDTH 16.2 % (11.6-17.2); WHITE BLOOD COUNT 9.1 TH/MM3 (4.0-11.0)
[2016-11-07 06:35] LABS: ANION GAP 9 MEQ/L (5-15); BICARBONATE 26.2 MEQ/L (21.0-32.0); BLOOD UREA NITROGEN 61 MG/DL (7-18); CHLORIDE 105 MEQ/L (98-107); GLOMERULAR FILTRATION RATE 15 ML/MIN (>89); POTASSIUM 3.9 MEQ/L (3.5-5.1); SODIUM (NA) 140 MEQ/L (136-145)
[2016-11-07 06:36] LABS: TRANSFERRIN IRON PROFILE 286 MG/DL (200-360)
--- NOTE | 2016-11-07 07:54 | HHI.PR ---
Subjective Remarks Follow up for symptomatic anemia, ESRD. Attempted to see patient in the morning. He was in dialysis. Saw patient in the PM. He is upset about midnight Ultrasound last night and then awoken again at 5PM to provide him with a wrist band. He denies any acute concerns - no CP, SOB, fever, chills. We discussed the need for colonoscopy. Patient says he is almost 82 and has no plan to undergo Colonoscopy. He was on Iron supplementation before and apparently his hemoglobin improved. He would like to go back on Iron supplementation. Objective Vitals Vital Signs Date Time Temp Pulse Resp B/P Pulse Ox O2 Delivery O2 Flow Rate FiO2 11/07/16 04:00 98.1 81 17 141/69 96 11/07/16 00:10 96.8 80 18 169/74 98 11/06/16 19:30 97.9 78 17 148/70 96 11/06/16 17:47 96 21 11/06/16 16:00 96.4 108 14 117/58 96 11/06/16 10:45 97.8 75 15 164/70 97 11/06/16 09:43 96 21 11/06/16 08:00 96.3 66 14 160/70 95 I/O 11/06/16 11/06/16 11/06/16 11/07/16 11/07/16 11/07/16 07:00 15:00 23:00 07:00 15:00 23:00 Intake Total 360 ml 480 ml 60 ml 120 ml Output Total 450 ml 2250 ml Balance -90 ml -1770 ml 60 ml 120 ml Intake Oral 360 ml 480 ml 60 ml 120 ml Output Urine Total 450 ml 250 ml Hemodialysis 2000 ml # Voids 1 2 3 # Bowel Movements 2 0 0 Result Diagram: 11/07/16 0603 11/07/16 0603 Imaging Last Impressions Upper Extremity Ultrasound 11/06/16 1039 Signed Impressions: Service Date/Time: Sunday, November 06, 2016 23:19 - CONCLUSION: Bilateral upper extremity venous mapping measurements as above. Martin Pillai MD Catheter Placement X-Ray 11/06/16 0000 Signed Impressions: Service Date/Time: Sunday, November 06, 2016 11:25 - CONCLUSION: Uncomplicated PermaCath placement as above. Jacobo Crowell MD Objective Remarks GENERAL: AOx3, NAD. SKIN: Warm and dry. HEAD: Normocephalic. EYES: No scleral icterus. No injection or drainage. NECK: Supple, trachea midline. No JVD or lymphadenopathy. CARDIOVASCULAR: Regular rate and rhythm without murmurs, gallops, or rubs. RESPIRATORY: Breath sounds equal bilaterally. No accessory muscle use. GASTROINTESTINAL: Abdomen soft, non-tender, nondistended. MUSCULOSKELETAL: No cyanosis, or edema. BACK: Nontender without obvious deformity. No CVA tenderness. Procedures Permcath placed by IR on 11/06/2016. A/P Problem List: (1) Symptomatic anemia ICD Code: D64.9 Status: Acute (2) Anemia in chronic kidney disease (CKD) ICD Code: N18.9 Status: Acute (3) ESRD (end stage renal disease) ICD Code: N18.6 Status: Acute (4) Tobacco abuse ICD Code: Z72.0 Status: Acute Assessment and Plan Mr. Calderon is a pleasant 81 year old male with a history of CKD, probably at least stage IV who was sent to the ED by his sales executive insurance's office after blood work indicated anemia with Hgb around 6 and GFR below 10. Patient reports fatigue for the last several weeks, especially pronounced in the last one week prior to this admission. Patient underwent Permcath placement and subsequently first dialysis on 11/06/2016. - Symptomatic anemia - Anemia in CKD - ESRD - Patient has received 3 units of PRBCs so far. Hemoglobin 5.8 on admission and now 10.4 - IR placed PermCath and patient has received two dialysis treatments so far. - Nephrology following. - Epogen started by Nephrology. - Probable GI bleed Iron deficiency anemia. - Ferritin level 14. - Appreciate GI input. However, patient does not want to undergo colonoscopy. This is not an unreasonable decision. - Will start patient on Ferrous sulfate once a day along with vitamin C. - Hypertension - Continue Nifedipine 30mg Qday. - Tobacco abuse - Patient was counselled. However, he appears to be content with his smoking habits. Full code. SCDs. Alexia Claudio DO Nov 07, 2016 07:54
[2016-11-07] MEDS: SODIUM CHLORIDE 0.9% FLUSH 10 ML FLUSH IV FLUSH SCH ×2 (09:00→19:27)
[2016-11-07] MEDS: NIFEdipine 30 MG SUSTAINED RELEASE TAB PO SCH ×2 (09:00→13:40)
[2016-11-07] MEDS: DOCUSATE SODIUM 50 MG/SENNA 8.6 MG TAB PO SCH ×2 (09:00→19:26)
--- NOTE | 2016-11-07 10:07 | PD.CONS ---
HPI History of Present Illness This is a 81 year old with end stage renal disease, who was sent to the ER for evaluation of severe anemia. On admission, he was noted to have a H/H of 5.8/ 18.6, Iron 27, TIBC 400, Iron Saturation 6.7, Ferritin 14. He also had a vascath placed yesterday and started his first hemodialysis treatment today. GI has been consulted for further endoscopic evaluation of his anemia. I saw the patient in dialysis and he was very upset that he was awakened during the night for an ultrasound and is stating that he does not want any further treatment and that he just wants to go home. It is hard to obtain a good history from the patient, as he is upset and uncooperative for most of the interview. However, he was able to tell me that about 2 weeks ago, he was constipated and was straining. After passing a hard stool, he noticed that he had a large amount of bright red blood on the tissue and filling the toilet. He reports that he has not had any further episodes after starting a stool softener and that he passed a normal stool yesterday. It is unclear if he has had further episodes of bleeding. Initially he said yes, but then said, "no I' m fine. I don't want any procedures." He denies any nausea, vomiting, heartburn, reflux, decreased appetite, abdominal pain, diarrhea, or black stools. He does state that he has probably lost a great deal of weight because we are not feeding him. He takes a baby aspirin, but denies any use of NSAIDs. He has never had peptic ulcer disease and denies any history of an endoscopy or colonoscopy. He reports that his brother is from an unknown cancer that was in his back and then went to his brain. He denies any other family members having any known cancer. I did explain the reason for our consult and the rationale for endoscopic evaluation- procedures, risks, benefits. He then became consent and reports that he has never had one and never will." PFSH Past Medical History End stage renal disease Hypertension Anemia Recent rectal bleeding (bright red) Past Surgical History Hernia repair 2009 Coded Allergies: No Known Allergies (Unverified , 11/05/16) Medications Allergies Coded Allergies Type Severity Reaction Last Updated Verified No Known Allergies 11/05/16 No Active Scripts Medications Dose Route/Sig Days Date Category Diltiazem CD 24 HR 240 Mg Caper 240 Mg PO DAILY 11/05/16 Reported Losartan (Losartan Potassium) 100 Mg Tab 100 Mg PO DAILY 11/05/16 Reported Doxazosin (Doxazosin Mesylate) 8 Mg Tab 8 Mg PO DAILY 11/05/16 Reported Family History Brother from unknown cancer of his back/brain at the age of 16. He denies any other known family members with cancer. Social History Uses alcohol occasionally Smokes 1 ppd. Review of Systems Constitutional: COMPLAINS OF: Fatigue, DENIES: Fever, Chills, Change in appetite Respiratory: DENIES: Cough Cardiovascular: DENIES: Chest pain Gastrointestinal: COMPLAINS OF: Bloody stools (Bright red blood), Constipation , DENIES: Abdominal pain, Black stools, Diarrhea, Nausea, Vomiting, Anorexia, Swelling of Abdomen, Heartburn, Hematemesis Integumentary: DENIES: Rash Hematologic/lymphatic: COMPLAINS OF: Bruising Immunologic/allergic: DENIES: Eczema Neurologic: DENIES: Headache Psychiatric: DENIES: Confusion GI Exam Vitals I&O Vital Signs Date Time Temp Pulse Resp B/P Pulse Ox O2 Delivery O2 Flow Rate FiO2 11/07/16 08:00 96.8 79 18 149/69 94 11/07/16 04:00 98.1 81 17 141/69 96 11/07/16 00:10 96.8 80 18 169/74 98 11/06/16 19:30 97.9 78 17 148/70 96 11/06/16 17:47 96 21 11/06/16 16:00 96.4 108 14 117/58 96 11/06/16 10:45 97.8 75 15 164/70 97 I/O 11/06/16 11/06/16 11/06/16 11/07/16 11/07/16 11/07/16 07:00 15:00 23:00 07:00 15:00 23:00 Intake Total 360 ml 480 ml 60 ml 120 ml Output Total 450 ml 2250 ml Balance -90 ml -1770 ml 60 ml 120 ml Intake Oral 360 ml 480 ml 60 ml 120 ml Output Urine Total 450 ml 250 ml Hemodialysis 2000 ml # Voids 1 2 3 # Bowel Movements 2 0 0 Imaging Last Impressions Upper Extremity Ultrasound 11/06/16 1039 Signed Impressions: Service Date/Time: Sunday, November 06, 2016 23:19 - CONCLUSION: Bilateral upper extremity venous mapping measurements as above. Martin Pillai MD Catheter Placement X-Ray 11/06/16 0000 Signed Impressions: Service Date/Time: Sunday, November 06, 2016 11:25 - CONCLUSION: Uncomplicated PermaCath placement as above. Jacobo Crowell MD Laboratory Test 11/06/16 11/07/16 16:20 06:03 Ferritin 14 NG/ML White Blood Count 9.1 TH/MM3 Red Blood Count 3.96 MIL/MM3 Hemoglobin 10.4 GM/DL Hematocrit 31.3 % Mean Corpuscular Volume 79.0 FL Mean Corpuscular Hemoglobin 26.4 PG Mean Corpuscular Hemoglobin 33.4 % Concent Red Cell Distribution Width 16.2 % Platelet Count 219 TH/MM3 Mean Platelet Volume 8.5 FL Neutrophils (%) (Auto) 64.8 % Lymphocytes (%) (Auto) 17.5 % Monocytes (%) (Auto) 12.9 % Eosinophils (%) (Auto) 3.4 % Basophils (%) (Auto) 1.4 % Neutrophils # (Auto) 5.9 TH/MM3 Lymphocytes # (Auto) 1.6 TH/MM3 Monocytes # (Auto) 1.2 TH/MM3 Eosinophils # (Auto) 0.3 TH/MM3 Basophils # (Auto) 0.1 TH/MM3 CBC Comment DIFF FINAL Differential Comment Sodium Level 140 MEQ/L Potassium Level 3.9 MEQ/L Chloride Level 105 MEQ/L Carbon Dioxide Level 26.2 MEQ/L Anion Gap 9 MEQ/L Blood Urea Nitrogen 61 MG/DL Creatinine 3.86 MG/DL Estimat Glomerular Filtration 15 ML/MIN Rate Random Glucose 94 MG/DL Calcium Level 8.9 MG/DL Phosphorus Level 3.8 MG/DL Iron Level 27 MCG/DL Total Iron Binding Capacity 400 MCG/DL Percent Iron Saturation 6.7 % Albumin 3.1 GM/DL Physical Examination HEENT: Normocephalic; atraumatic; no jaundice. CHEST: CTA CARDIAC: RRR ABDOMEN: Soft, nondistended, nontender; no hepatosplenomegaly; bowel sounds are present in all four quadrants. EXTREMITIES: No clubbing, cyanosis, or edema. SKIN: Multiple ecchymotic areas. MANAGER CASE MANAGEMENT: No focal deficits; alert and oriented times three. Assessment and Plan Plan ASSESSMENT: - SARAH. On admission, he was noted to have a H/H of 5.8/18.6, Iron 27, TIBC 400 , Iron Saturation 6.7, Ferritin 14. He reports an episode of constipation followed by large amount rectal bleeding (bright red blood on tissue and filling the toilet 2 weeks ago). He is very vague if he has had other episodes, but states he has not had any further episodes and that he had a regular bowel movement yesterday without any blood. Denies any other GI symptoms. No hx of PUD. Never had EGD/Colonoscopy. I did explain the reason for our consult and the rationale for endoscopic evaluation- procedures, risks, benefits. He then became consent and reports that he has never had one and never will." He is absolutely refusing GI workup at this time and requested that we do not return to discuss this again. - Recent rectal bleeding. Reported constipation and an episode of large amount of bright red blood on tissue and filling toilet 2 weeks ago. No hx of colonoscopy. He states that he started a stool softener and is no longer having issues with this and had a normal bowel movement yesterday. - ESRD, S/P Vascath placement. Started HD today. Per nephrology. - HTN per primary PLAN: - Renal diet. - Started on Venofer - Monitor HH - Transfuse as necessary - Recommend EGD/Colonoscopy. Pt adamantly refusing at this time - Pt seen and examined by Dr. Garcia and myself and this note is written on his behalf Susanne Luis Nov 07, 2016 10:07
[2016-11-07] MEDS: IRON SUCROSE INJ 100 MG in SODIUM CHLORIDE 0.9% INJ 100 ML IV SCH (11:00)
--- NOTE | 2016-11-07 11:06 | HHI.NPPN ---
Subjective General Problems: Anemia, Hypertension Renal Problems: Uremia Renal Failure: End Stage Renal Disease Interval History Permcath placed and hemodialysis was initiated yesterday with 2L fluid removal. He is very upset about having ultrasound around midnight last night, now threatening to leave AMA. He was seen during dialysis again today. Hb has improved. No further GI bleeding. He is refusing any additional treatments. ( Elizabeth Foley) Review of Systems General Constitutional: Fatigue (Elizabeth Foley) Gastrointestinal Gastrointestinal: Blood/Tarry Stools (Elizabeth Foley) Objective Data Data 11/06/16 11/07/16 19:00 07:00 Intake Total 480 ml 180 ml Output Total 2250 ml Balance -1770 ml 180 ml Intake Oral 480 ml 180 ml Output Urine Total 250 ml Hemodialysis 2000 ml # Voids 1 5 # Bowel Movements 2 0 Vital Signs Date Time Temp Pulse Resp B/P Pulse Ox O2 Delivery O2 Flow Rate FiO2 11/07/16 08:00 96.8 79 18 149/69 94 11/07/16 04:00 98.1 81 17 141/69 96 11/07/16 00:10 96.8 80 18 169/74 98 11/06/16 19:30 97.9 78 17 148/70 96 11/06/16 17:47 96 21 11/06/16 16:00 96.4 108 14 117/58 96 (Elizabeth Foley) -: 11/07/16 0603 11/07/16 0603 Imaging Last Impressions Upper Extremity Ultrasound 11/06/16 1039 Signed Impressions: Service Date/Time: Sunday, November 06, 2016 23:19 - CONCLUSION: Bilateral upper extremity venous mapping measurements as above. Martin Pillai MD Catheter Placement X-Ray 11/06/16 0000 Signed Impressions: Service Date/Time: Sunday, November 06, 2016 11:25 - CONCLUSION: Uncomplicated PermaCath placement as above. Jacobo Crowell MD Tubes & Lines: Perma-Cath (Elizabeth Foley) Physical Exam General Appearance: Well Developed, Comfortable, Anxious, Malnourished (Elizabeth Foley) Throat Throat Exam: Oral Mucosa [place] & Moist (Elizabeth Foley) Pulmonary Resp Exam: Clear Bilaterally, Breath Sounds Equal (Elizabeth Foley TUBE CUTTER OPERATOR) Cardiology CV Exam: Regular, Normal Sinus Rhythm, Good Perfusion CV Remarks Permcath right chest (Elizabeth FoleyP) Gastrointestinal/Abdomen GI Exam: Soft, Non-Tender, Bowel Sounds Present (Elizabeth Foley TUBE CUTTER OPERATOR) Musculoskeletal MS Exam: Joints Intact, Normal Tone, Good Strength (Elizabeth FoleyP) Integumentary Skin Exam: Clear, Warm, Dry, Intact (Elizabeth Foley) Extremeties Extremities Exam: No Edema, Pedal Pulses Palpable (Elizabeth Foley) Neurologic Neuro Exam: Alert, Awake, Oriented, Speech Clear, Moving All Extremities ( Elizabeth Foley) Assessment/Plan Discussed Condition With: Patient Assessment Summary: Anemia of CKD, End Stage Renal Disease Problem List: (1) ESRD (end stage renal disease) Plan: He has reached ESRD and in process of beginning dialysis Permcath placed 11/06, HD Saturday with 2L fluid removal seen during dialysis today on a 3K, 300 BFR, goal 1500 ml I have contacted [facility] in [facility] to begin process of initiating outpatient HD arrangements His days are temporarily MWF, however may have to convert to TTS due to chair availability, chair time to be determined He has been evaluated by Dr. Amaral for AVF placement, plan was for right arm surgery on Saturday, he is now refusing (states he will come back as outpatient) at this time plan for dialysis Saturday, monitor electrolytes daily he is not fluid overloaded, he still makes urine serologies are pending his phosphorus is acceptable, phosphate binders have not been started I asked the patient if I could call his son to discuss the risks of leaving the hospital AMA but the patient told me NOT to call his son I have just been informed by the dialysis nurses he has agreed to stay through the weekend (2) Anemia Plan: Hb started multifactorial, suspected anemia of chronic disease, Epogen started microcytic,iron deficienct, venofer has been ordered he was given 3 units PRBC as aneimia may also be fdue to GI bleeding , he was evaluated by GI and is refusing colonoscopy/additional work up follow Hb 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 I also explained that he may develop life threatening electrolyte disorders if not dialyzed on a regular schedule; and if he leaves AMA to please return to the hospital for continued treatment. (Elizabeth Foley) Plan patient was seen and examined during dialysis. He is upset of US that was done around midnight. Also upset that he has to stay in the hospital. I have explained that he is ill and and has multiple medical problems in addition to CKD that need to be taken care of before a safe discharged. I am told that he has agreed to stay through the weekend. Outpatient workup had revealed abnormal SPEP. He has proteinuric CKD. He had refused renal biopsy last year and then was lost to followup until a few weeks ago. I have ordered kappa/lambda light chain assay. May need hematology evaluation. In addition he has iron deficiency, but refused EGD/colonoscopy. (Anuj Whitehead MD) Problem Qualifiers (1) Anemia: Qualified Code: D64.89 - Anemia due to other cause, not classified Elizabeth Foley Nov 07, 2016 11:06 Anuj Whitehead MD Nov 07, 2016 18:34
[2016-11-08 08:00] VITALS: BP 137/77; PULSE 87; RESP 18; TEMP 96.3; O2SAT 95
[2016-11-08] MEDS: NIFEdipine 30 MG SUSTAINED RELEASE TAB PO SCH (09:00)
[2016-11-08] MEDS: IRON SUCROSE INJ 100 MG in SODIUM CHLORIDE 0.9% INJ 100 ML IV SCH ×2 (09:00→10:55)
[2016-11-08] MEDS: DOCUSATE SODIUM 50 MG/SENNA 8.6 MG TAB PO SCH ×2 (09:00→20:42)
[2016-11-08] MEDS: SODIUM CHLORIDE 0.9% FLUSH 10 ML FLUSH IV FLUSH SCH ×2 (09:00→20:42)
--- NOTE | 2016-11-08 10:41 | HHI.PR ---
Subjective Remarks Written by Falguni Hernandez, acting as scribe for Dr. Claudio on 11/08/16 at 10:30. Follow up for symptomatic anemia, ESRD. Patient seen and examined. Sitting up on side of bed comfortably, NAD. Discussed with patient regarding AV fistula placement, patient wants to wait until after discharge and follow up outpatient. Denies any new acute complaints. Denies any recent fever, chills, headache, cough, shortness of breath, abdominal pain, nausea, vomiting, diarrhea or dysuria. Positive BM. Objective Vitals Vital Signs Date Time Temp Pulse Resp B/P Pulse Ox O2 Delivery O2 Flow Rate FiO2 11/08/16 08:00 96.3 87 18 137/77 95 11/07/16 23:22 97.7 68 17 128/62 94 11/07/16 19:00 96.7 82 16 112/57 95 11/07/16 16:00 96.9 74 18 135/69 97 11/07/16 12:44 93 11/07/16 11:30 95.9 91 18 117/70 97 I/O 11/07/16 11/07/16 11/07/16 11/08/16 11/08/16 11/08/16 07:00 15:00 23:00 07:00 15:00 23:00 Intake Total 120 ml 600 ml 240 ml 250 ml Output Total 2000 ml Balance 120 ml -1400 ml 240 ml 250 ml Intake Oral 120 ml 600 ml 240 ml 250 ml Hemodialysis 2000 ml # Voids 3 2 2 # Bowel Movements 0 0 0 Result Diagram: 11/07/16 0603 11/07/16 0603 Imaging Last Impressions Upper Extremity Ultrasound 11/06/16 1039 Signed Impressions: Service Date/Time: Sunday, November 06, 2016 23:19 - CONCLUSION: Bilateral upper extremity venous mapping measurements as above. Martin Pillai MD Catheter Placement X-Ray 11/06/16 0000 Signed Impressions: Service Date/Time: Sunday, November 06, 2016 11:25 - CONCLUSION: Uncomplicated PermaCath placement as above. Jacobo Crowell MD Objective Remarks GENERAL: Well-developed, well-nourished mal patient, sitting on side of bed in NAD. AOx3. SKIN: Warm and dry. HEENT: Normocephalic. No scleral icterus. No injection or drainage. NECK: Supple, trachea midline. No JVD. CARDIOVASCULAR: Regular rate and rhythm. No murmur appreciated. RESPIRATORY: Breath sounds equal bilaterally. No accessory muscle use. GASTROINTESTINAL: Abdomen soft, non-tender, nondistended. Bowel sounds active x 4. MUSCULOSKELETAL: No cyanosis, or edema. BACK: Nontender without obvious deformity. No CVA tenderness. Procedures Permcath placed by IR on 11/06/2016. A/P Problem List: (1) Symptomatic anemia ICD Code: D64.9 Status: Acute (2) Anemia in chronic kidney disease (CKD) ICD Code: N18.9 Status: Acute (3) ESRD (end stage renal disease) ICD Code: N18.6 Status: Acute (4) Tobacco abuse ICD Code: Z72.0 Status: Acute Assessment and Plan Mr. Calderon is a pleasant 81 year old male with a history of CKD, probably at least stage IV who was sent to the ED by his metallurgical tester's office after blood work indicated anemia with Hgb around 6 and GFR below 10. Patient reports fatigue for the last several weeks, especially pronounced in the last one week prior to this admission. Patient underwent Permcath placement and subsequently first dialysis on 11/06/2016. Symptomatic anemia Anemia in CKD ESRD - Patient has received 3 units of PRBCs so far. Hemoglobin 5.8 on admission and now 10.4 . - IR placed PermCath and patient on hemodialysis. - Nephrology following, appreciate input. - Epogen started by Nephrology, continue. - Patient is refusing an AV graft at this time, has decided he wants to follow up in the outpatient setting. Spoke at length about discharge plans and arrangement of outpatient dialysis. Patient agreeable and case management following, appreciate input. Probable GI bleed Iron deficiency anemia. - Ferritin level 14. - Appreciate GI input. However, patient does not want to undergo colonoscopy. This is not an unreasonable decision. - IV Iron Sucrose while in the hospital. Patient can continue PO Iron supplement upon discharge. Hypertension, chronic - Controlled at this time. - Continue Nifedipine 30mg Qday. Tobacco abuse - Patient was counselled. However, he appears to be content with his smoking habits. DVT prophylaxis: SCDs. Full code. This note was transcribed by BECKA Blanco. I, Dr. Celestine Claudio personally performed the history, physical exam, and medical decision making; and confirmed the accuracy of the information in the transcribed note. Authenticated by Dr. Celestine Claudio on 11/08/16 at 23:57. Discharge Planning If arrangements for outpatient dialysis and transportation are made, tentative plan for patient to discharge tomorrow after dialysis and IV iron infusion. Last CM note 11/07/16@ 3pm- spoke with pt,macho duenas,corrected his ph # [phone]. He stated his son Geo and ALEC Howard live nearby. Discussed dc plan for home and f/u outpt for Dialysis at [facility]. Pt agreeable to plan.Spoke with Tiffanie at [facility],she stated transportation may be an issue because there are only 3:30pm on chait times and [facility] does not have a night time transport available. CM to f/u with pt to see if family can assist. 11/07/16-CM has made several attempts to meet with pt,he has been out of room each time. Received call from Tiffanie at [facility],she requested clinicals and HD flow sheets be faxed to her. She will contact Beau and set up transportation for pt to and from dialysis at [facility]. Tiffanie's cell # [phone]/ efax# [phone]. Falguni Hernandez Nov 08, 2016 10:41 Alexia Claudio DO Nov 08, 2016 23:57
[2016-11-08 12:00] VITALS: BP 123/68; PULSE 85; RESP 18; TEMP 95.8; O2SAT 96
--- NOTE | 2016-11-08 13:36 | HHI.NPPN ---
Subjective General Problems: Anemia, Hypertension Renal Problems: Uremia Renal Failure: End Stage Renal Disease Review of Systems General Constitutional: Fatigue Gastrointestinal Gastrointestinal: Blood/Tarry Stools Objective Data Data 11/07/16 11/08/16 19:00 07:00 Intake Total 600 ml 490 ml Output Total 2000 ml Balance -1400 ml 490 ml Intake Oral 600 ml 490 ml Hemodialysis 2000 ml # Voids 4 # Bowel Movements 0 Vital Signs Date Time Temp Pulse Resp B/P Pulse Ox O2 Delivery O2 Flow Rate FiO2 11/08/16 08:00 96.3 87 18 137/77 95 11/07/16 23:22 97.7 68 17 128/62 94 11/07/16 19:00 96.7 82 16 112/57 95 11/07/16 16:00 96.9 74 18 135/69 97 -: 11/07/16 0603 11/07/16 0603 Tubes & Lines: Perma-Cath Physical Exam General Appearance: Well Developed, Comfortable, Anxious, Malnourished Throat Throat Exam: Oral Mucosa [place] & Moist Pulmonary Resp Exam: Clear Bilaterally, Breath Sounds Equal Cardiology CV Exam: Regular, Normal Sinus Rhythm, Good Perfusion Gastrointestinal/Abdomen GI Exam: Soft, Non-Tender, Bowel Sounds Present Musculoskeletal MS Exam: Joints Intact, Normal Tone, Good Strength Integumentary Skin Exam: Clear, Warm, Dry, Intact Extremeties Extremities Exam: No Edema, Pedal Pulses Palpable Neurologic Neuro Exam: Alert, Awake, Oriented, Speech Clear, Moving All Extremities Assessment/Plan Discussed Condition With: Patient Assessment Summary: Anemia of CKD, End Stage Renal Disease Problem List: (1) ESRD (end stage renal disease) Plan: He has reached ESRD and in process of beginning dialysis Permcath placed 11/06, [facility] to begin process of initiating outpatient HD arrangements , however may have to convert to TTS due to chair availability, chair time to be determined He has been evaluated by Dr. Amaral for AVF placement, plan was for right arm surgery refused today may be tomorrow? he is not fluid overloaded, he still makes urine abnormal SPEP. He has proteinuric CKD. He had refused renal biopsy last year and then was lost to followup until a few weeks ago. I have ordered kappa/lambda light chain assay. May need hematology evaluation. In addition he has iron deficiency, but refused EGD/colonoscopy. 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
--- NOTE | 2016-11-08 14:20 | HHI.GIFU ---
Subjective Remarks Pt resting in bed. Still refusing colonoscopy/EGD. Says he's going home soon. Denies bleeding. Objective Vitals I&O Vital Signs Date Time Temp Pulse Resp B/P Pulse Ox O2 Delivery O2 Flow Rate FiO2 11/08/16 08:00 96.3 87 18 137/77 95 11/07/16 23:22 97.7 68 17 128/62 94 11/07/16 19:00 96.7 82 16 112/57 95 11/07/16 16:00 96.9 74 18 135/69 97 I/O 11/07/16 11/07/16 11/07/16 11/08/16 11/08/16 11/08/16 07:00 15:00 23:00 07:00 15:00 23:00 Intake Total 120 ml 600 ml 240 ml 250 ml Output Total 2000 ml Balance 120 ml -1400 ml 240 ml 250 ml Intake Oral 120 ml 600 ml 240 ml 250 ml Hemodialysis 2000 ml # Voids 3 2 2 # Bowel Movements 0 0 0 Imaging Last Impressions Upper Extremity Ultrasound 11/06/16 1039 Signed Impressions: Service Date/Time: Sunday, November 06, 2016 23:19 - CONCLUSION: Bilateral upper extremity venous mapping measurements as above. Martin Pillai MD Catheter Placement X-Ray 11/06/16 0000 Signed Impressions: Service Date/Time: Sunday, November 06, 2016 11:25 - CONCLUSION: Uncomplicated PermaCath placement as above. Jacobo Crowell MD Physical Exam HEENT: PERRL; normocephalic; atraumatic; no jaundice. CHEST: CTA CARDIAC: RRR ABDOMEN: Soft, nondistended, nontender; no hepatosplenomegaly; bowel sounds are present in all four quadrants. EXTREMITIES: No clubbing, cyanosis, or edema. SKIN: Normal; no rash; no jaundice. WELLNESS PROGRAM MANAGER: No focal deficits; alert and oriented times three. Assessment and Plan Plan ASSESSMENT: - SARAH. On admission, he was noted to have a H/H of 5.8/18.6, Iron 27, TIBC 400 , Iron Saturation 6.7, Ferritin 14. He reports an episode of constipation followed by large amount rectal bleeding (bright red blood on tissue and filling the toilet 2 weeks ago). He is very vague if he has had other episodes, but states he has not had any further episodes and that he had a regular bowel movement yesterday without any blood. Denies any other GI symptoms. No hx of PUD. Never had EGD/Colonoscopy. I did explain the reason for our consult and the rationale for endoscopic evaluation- procedures, risks, benefits. Pt refusing EGD/colonoscopy. - Recent rectal bleeding. Reported constipation and an episode of large amount of bright red blood on tissue and filling toilet 2 weeks ago. No hx of colonoscopy. He states that he started a stool softener and is no longer having issues with this and had a normal bowel movement yesterday. - ESRD, S/P Vascath placement. Started HD today. Per nephrology. - HTN per primary PLAN: - Renal diet. - Started on Venofer - Monitor HH - Transfuse as necessary - Recommend EGD/Colonoscopy. Pt adamantly refusing - GI will sign off - Pt seen and examined by Dr. Garcia and myself and this note is written on his behalf Ashley Roy Nov 08, 2016 14:20
[2016-11-08 16:00] VITALS: BP 123/68; PULSE 70; RESP 18; TEMP 95.9; O2SAT 95
[2016-11-08 19:00] VITALS: BP 140/71; PULSE 64; RESP 16; TEMP 95.9; O2SAT 94
[2016-11-09 00:27] VITALS: BP 133/75; PULSE 64; RESP 17; TEMP 96.5; O2SAT 95
[2016-11-09 03:52] LABS: KAPPA/LAMBDA FREE 0.54 (0.26-1.65)
[2016-11-09 08:03] VITALS: BP 140/72; PULSE 84; RESP 16; TEMP 96.5; O2SAT 96
[2016-11-09] MEDS: DOCUSATE SODIUM 50 MG/SENNA 8.6 MG TAB PO SCH ×2 (08:31→20:11)
[2016-11-09] MEDS: NIFEdipine 30 MG SUSTAINED RELEASE TAB PO SCH (08:31)
[2016-11-09] MEDS: SODIUM CHLORIDE 0.9% FLUSH 10 ML FLUSH IV FLUSH SCH ×2 (08:31→20:11)
[2016-11-09] MEDS: IRON SUCROSE INJ 100 MG in SODIUM CHLORIDE 0.9% INJ 100 ML IV SCH (08:31)
[2016-11-09 11:28] VITALS: BP 117/56; PULSE 81; RESP 16; TEMP 96.1; O2SAT 92
--- NOTE | 2016-11-09 11:50 | HHI.GIFU ---
Subjective Remarks Resting in bed. Denies GI bleeding. Tolerating diet. Still does not wish to pursue egd/colonoscopy. Hoping to be discharged after HD tomorrow. Objective Vitals I&O Vital Signs Date Time Temp Pulse Resp B/P Pulse Ox O2 Delivery O2 Flow Rate FiO2 11/09/16 11:28 96.1 81 16 117/56 92 11/09/16 08:03 96.5 84 16 140/72 96 11/09/16 00:27 96.5 64 17 133/75 95 11/08/16 22:15 Room Air 11/08/16 19:00 95.9 64 16 140/71 94 11/08/16 16:00 95.9 70 18 123/68 95 11/08/16 12:00 95.8 85 18 123/68 96 I/O 11/08/16 11/08/16 11/08/16 11/09/16 11/09/16 11/09/16 07:00 15:00 23:00 07:00 15:00 23:00 Intake Total 250 ml 600 ml 480 ml 150 ml Balance 250 ml 600 ml 480 ml 150 ml Intake Oral 250 ml 600 ml 480 ml 150 ml # Voids 2 3 3 2 # Bowel Movements 0 0 0 0 Imaging Last Impressions Upper Extremity Ultrasound 11/06/16 1039 Signed Impressions: Service Date/Time: Sunday, November 06, 2016 23:19 - CONCLUSION: Bilateral upper extremity venous mapping measurements as above. Martin Pillai MD Catheter Placement X-Ray 11/06/16 0000 Signed Impressions: Service Date/Time: Sunday, November 06, 2016 11:25 - CONCLUSION: Uncomplicated PermaCath placement as above. Jacobo Crowell MD Physical Exam HEENT: Normocephalic; atraumatic; no jaundice. CHEST: CTA CARDIAC: RRR ABDOMEN: Soft, nondistended, nontender; no hepatosplenomegaly; bowel sounds are present in all four quadrants. EXTREMITIES: No clubbing, cyanosis, or edema. SKIN: Normal; no rash; no jaundice. FLAGMAN: No focal deficits; alert and oriented times three. Assessment and Plan Plan ASSESSMENT: - SARAH. On admission, he was noted to have a H/H of 5.8/18.6, Iron 27, TIBC 400 , Iron Saturation 6.7, Ferritin 14. He reports an episode of constipation followed by large amount rectal bleeding (bright red blood on tissue and filling the toilet 2 weeks ago). He is very vague if he has had other episodes, but states he has not had any further episodes and that he had a regular bowel movement yesterday without any blood. Denies any other GI symptoms. No hx of PUD. Never had EGD/Colonoscopy. He is adamantly refusing EGD/Colonoscopy. S/P 3 units PRBC. HH is stable at 10.4/31.3. Had iron transfusions. No obvious active gi bleeding. - Recent rectal bleeding. Reported constipation and an episode of large amount of bright red blood on tissue and filling toilet 2 weeks ago. No hx of colonoscopy. He states that he started a stool softener and has not had any further episodes. - ESRD, S/P Vascath placement. Started HD during this hospitalization, scheduled for tomorrow. Per nephrology. - HTN per primary PLAN: - Okay to d/c home from GI standpoint - Renal diet. - S/P Venofer - S/P PRBC - FU ILENE 2 weeks - GI will sign off, please reconsult as needed - Pt seen and examined by Dr. Garcia and myself and this note is written on his behalf Susanne Luis Nov 09, 2016 11:50
--- NOTE | 2016-11-09 12:54 | HHI.NPPN ---
Subjective General Problems: Anemia, Hypertension Renal Problems: Uremia Renal Failure: End Stage Renal Disease Review of Systems General Constitutional: Fatigue Gastrointestinal Gastrointestinal: Blood/Tarry Stools Objective Data Data 11/08/16 11/09/16 19:00 07:00 Intake Total 600 ml 630 ml Balance 600 ml 630 ml Intake Oral 600 ml 630 ml # Voids 3 5 # Bowel Movements 0 0 Vital Signs Date Time Temp Pulse Resp B/P Pulse Ox O2 Delivery O2 Flow Rate FiO2 11/09/16 11:28 96.1 81 16 117/56 92 11/09/16 08:03 96.5 84 16 140/72 96 11/09/16 00:27 96.5 64 17 133/75 95 11/08/16 22:15 Room Air 11/08/16 19:00 95.9 64 16 140/71 94 11/08/16 16:00 95.9 70 18 123/68 95 -: 11/07/16 0603 11/07/16 0603 Tubes & Lines: Perma-Cath Physical Exam General Appearance: Well Developed, Comfortable, Anxious, Malnourished Throat Throat Exam: Oral Mucosa [place] & Moist Pulmonary Resp Exam: Clear Bilaterally, Breath Sounds Equal Cardiology CV Exam: Regular, Normal Sinus Rhythm, Good Perfusion Gastrointestinal/Abdomen GI Exam: Soft, Non-Tender, Bowel Sounds Present Musculoskeletal MS Exam: Joints Intact, Normal Tone, Good Strength Integumentary Skin Exam: Clear, Warm, Dry, Intact Extremeties Extremities Exam: No Edema, Pedal Pulses Palpable Neurologic Neuro Exam: Alert, Awake, Oriented, Speech Clear, Moving All Extremities Assessment/Plan Discussed Condition With: Patient Assessment Summary: Anemia of CKD, End Stage Renal Disease Problem List: (1) ESRD (end stage renal disease) Plan: He has reached ESRD and in process of beginning dialysis Permcath placed 11/06, [facility] to begin process of initiating outpatient HD arrangements , however may have to convert to TTS due to chair availability, chair time to be determined He has been evaluated by Dr. Amaral for AVF placement, plan was for right arm surgery refused in patient wants to do as out pt abnormal SPEP. He has proteinuric CKD. He had refused renal biopsy last year and then was lost to followup until a few weeks ago. I have reviewed kappa/lambda light chain assay. no change in Ratio so it not monoclonal, slight rise in both chains due to renal failure? 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
--- NOTE | 2016-11-09 14:39 | HHI.PR ---
Subjective Remarks Follow up for symptomatic anemia, ESRD. Patient seen and examined. Mr. Calderon is currently doing well. No acute concerns. Denies any chest pain, shortness of breath, fever or chills. After Emperatriz's tomorrow patient wants to go home. Objective Vitals Vital Signs Date Time Temp Pulse Resp B/P Pulse Ox O2 Delivery O2 Flow Rate FiO2 11/09/16 11:28 96.1 81 16 117/56 92 11/09/16 08:03 96.5 84 16 140/72 96 11/09/16 00:27 96.5 64 17 133/75 95 11/08/16 22:15 Room Air 11/08/16 19:00 95.9 64 16 140/71 94 11/08/16 16:00 95.9 70 18 123/68 95 I/O 11/08/16 11/08/16 11/08/16 11/09/16 11/09/16 11/09/16 07:00 15:00 23:00 07:00 15:00 23:00 Intake Total 250 ml 600 ml 480 ml 150 ml 480 ml Balance 250 ml 600 ml 480 ml 150 ml 480 ml Intake Oral 250 ml 600 ml 480 ml 150 ml 480 ml # Voids 2 3 3 2 2 # Bowel Movements 0 0 0 0 0 Result Diagram: 11/07/16 0603 11/07/16 0603 Imaging Last Impressions Upper Extremity Ultrasound 11/06/16 1039 Signed Impressions: Service Date/Time: Sunday, November 06, 2016 23:19 - CONCLUSION: Bilateral upper extremity venous mapping measurements as above. Martin Pillai MD Catheter Placement X-Ray 11/06/16 0000 Signed Impressions: Service Date/Time: Sunday, November 06, 2016 11:25 - CONCLUSION: Uncomplicated PermaCath placement as above. Jacobo Crowell MD Objective Remarks GENERAL: AOx3, NAD. SKIN: Warm and dry. HEAD: Normocephalic. EYES: No scleral icterus. No injection or drainage. NECK: Supple, trachea midline. No JVD or lymphadenopathy. CARDIOVASCULAR: Regular rate and rhythm without murmurs, gallops, or rubs. RESPIRATORY: Breath sounds equal bilaterally. No accessory muscle use. GASTROINTESTINAL: Abdomen soft, non-tender, nondistended. MUSCULOSKELETAL: No cyanosis, or edema. BACK: Nontender without obvious deformity. No CVA tenderness. Procedures Permcath placed by IR on 11/06/2016. A/P Problem List: (1) Symptomatic anemia ICD Code: D64.9 Status: Acute (2) Anemia in chronic kidney disease (CKD) ICD Code: N18.9 Status: Acute (3) ESRD (end stage renal disease) ICD Code: N18.6 Status: Acute (4) Tobacco abuse ICD Code: Z72.0 Status: Acute Assessment and Plan Mr. Calderon is a pleasant 81 year old male with a history of CKD, probably at least stage IV who was sent to the ED by his log buyer's office after blood work indicated anemia with Hgb around 6 and GFR below 10. Patient reports fatigue for the last several weeks, especially pronounced in the last one week prior to this admission. Patient underwent Permcath placement and subsequently first dialysis on 11/06/2016. Symptomatic anemia Anemia in CKD ESRD - Patient has received 3 units of PRBCs so far. Hemoglobin 5.8 on admission and now 10.4 . - IR placed PermCath and patient on hemodialysis. - Nephrology following, appreciate input. - Epogen started by Nephrology, continue. - Patient is refusing an AV graft at this time, has decided he wants to follow up in the outpatient setting. Spoke at length about discharge plans and arrangement of outpatient dialysis. Patient agreeable and case management following, appreciate input. Probable GI bleed Iron deficiency anemia. - Ferritin level 14. - Appreciate GI input. However, patient does not want to undergo colonoscopy. This is not an unreasonable decision. - Discussed with Nephrology. We do not need any further IV Iron. Patient can take Iron tablets. - will start Iron sulfate once a day. Hypertension, chronic - Controlled at this time. - Continue Nifedipine 30mg Qday. Tobacco abuse - Patient was counselled. However, he appears to be content with his smoking habits. DVT prophylaxis: SCDs. Full code. Alexia Claudio DO Nov 09, 2016 2:39 pm
[2016-11-09 15:18] VITALS: BP 116/62; PULSE 67; RESP 16; TEMP 96.3; O2SAT 95
[2016-11-09 20:00] VITALS: BP 112/65; PULSE 71; RESP 16; TEMP 96; O2SAT 94
[2016-11-09] MEDS ORDERED: FERR325T20 PO (22:35)
[2016-11-09] MEDS ORDERED: NIFE30TA8 PO (22:35)
[2016-11-10] VITALS: BP 130/63; PULSE 66; RESP 18; TEMP 96.5; O2SAT 94
[2016-11-10 04:00] VITALS: BP 128/69; PULSE 70; RESP 16; TEMP 97.4; O2SAT 97
[2016-11-10] MEDS: NIFEdipine 30 MG SUSTAINED RELEASE TAB PO SCH (07:43)
[2016-11-10] MEDS: SODIUM CHLORIDE 0.9% FLUSH 10 ML FLUSH IV FLUSH SCH (07:43)
[2016-11-10] MEDS: DOCUSATE SODIUM 50 MG/SENNA 8.6 MG TAB PO SCH (07:43)
[2016-11-10 08:00] VITALS: BP 146/75; PULSE 74; RESP 20; TEMP 96.6; O2SAT 96
[2016-11-10] MEDS ORDERED: FERROUS SULFATE 325 MG (65 MG ELEMENTAL IRON) TAB PO SCH (09:00)
[2016-11-10] MEDS: GENTAMICIN SULFATE (DIALYSIS USE ONLY) 20 MG/2 ML VIAL IV PRN (09:13)
[2016-11-10] MEDS: HEPARIN SODIUM - IV 10,000 UNITS/10 ML VIAL PRN (09:13)
[2016-11-10] MEDS: EPOETIN ALFA 10,000 UNITS/ML VIAL IV PRN (09:14)
--- NOTE | 2016-11-10 13:43 | HHI.DS ---
Discharge Summary Admission Date Nov 05, 2016 at 18:16 Discharge Date: Nov 10, 2016 Admitting Diagnosis renal failure, anemia (1) Symptomatic anemia ICD Code: D64.9 (2) Anemia in chronic kidney disease (CKD) ICD Code: N18.9 (3) ESRD (end stage renal disease) ICD Code: N18.6 (4) Tobacco abuse ICD Code: Z72.0 Procedures Permcath placed by IR on 11/06/2016. Brief History - From Admission Mr. Calderon is a pleasant 81 year old male with a history of CKD who presented to the ED on the advise of his photo mask pattern generator due to hemoglobin around 6 and GFR 8. Patient reports several weeks of fatigue but particularly in the past 7 days or so. He reports bloody stool which he attributes to hemorrhoids. He denies any fever but reports chills. He also repots some shortness of breath but no chest pain. He denies any cough, abdominal pain. On arrival, Na 135, K 4.7, BUN 97, Cr. 5.6, eGFR 10. WBC 7, Hgb 5.8. Temp 98.2, Pulse 80, Resp rate 16, BP 135 /57, O2 sat 98% on room air. CBC/BMP: 11/07/16 0603 11/07/16 0603 PE at Discharge GENERAL: Well-developed, well-nourished mal patient, sitting on side of bed in NAD. AOx3. SKIN: Warm and dry. HEENT: Normocephalic. No scleral icterus. No injection or drainage. NECK: Supple, trachea midline. No JVD. CARDIOVASCULAR: Regular rate and rhythm. No murmur appreciated. RESPIRATORY: Breath sounds equal bilaterally. No accessory muscle use. GASTROINTESTINAL: Abdomen soft, non-tender, nondistended. Bowel sounds active x 4. MUSCULOSKELETAL: No cyanosis, or edema. BACK: Nontender without obvious deformity. No CVA tenderness. Hospital Course Assessment and Plan Mr. Calderon is a pleasant 81 year old male with a history of CKD, probably at least stage IV who was sent to the ED by his photo mask pattern generator's office after blood work indicated anemia with Hgb around 6 and GFR below 10. Patient reports fatigue for the last several weeks, especially pronounced in the last one week prior to this admission. Patient underwent Permcath placement and subsequently first dialysis on 11/06/2016. Symptomatic anemia, Anemia in CKD, ESRD Patient has received 3 units of PRBCs so far. Hemoglobin 5.8 on admission and now 10.4 ., IR placed PermCath and patient on hemodialysis. Nephrology following, appreciate input., Epogen started by Nephrology, continue. Patient is refusing an AV graft at this time, has decided he wants to follow up in the outpatient setting. arrangement for outpatient dialysis. She hasn't had Probable GI bleed Iron deficiency anemia.Ferritin level 14. Appreciate GI input. However, patient does not want to undergo colonoscopy. This is not an unreasonable decisio.Discussed with Nephrology. We do not need any further IV Iron. Patient can take Iron tablets. Started on Iron sulfate once a day. Patient seen and examined with his family at the bedside after he had dialysis on a day of the discharge, summary of hospitalization course and postdischarge plan has been placed D/W the patient. And his family regarding postdischarge arrangement and hemodialysis patient D/W nurse Discharge medications reviewed and printed and signed, post discharge follow up visit with PCP and other specialist as well as Brief hospital course and discharge summary has been placed. Pt Condition on Discharge: Stable Discharge Disposition: Discharge Home Discharge Time: > 30 minutes Discharge Instructions DIET: Follow Instructions for: Heart Healthy Diet, Renal Failure Diet Activities you can perform: Weight Bearing as Rosario Follow up Referrals: PCP Follow-up - 1 Week New Medications: Ferrous Sulfate (Ferosul) 325 Mg Tablet 325 MG PO DAILY Iron #30 BOTTLE Nifedipine ER 24 HR (Nifedipine ER 24 HR) 30 Mg Tab 30 MG PO DAILY Blood Pressure Management #30 TAB Discontinued Medications: Diltiazem CD 24 HR (Diltiazem CD 24 HR) 240 Mg Caper 240 MG PO DAILY #30 Ref 0 CAP Doxazosin (Doxazosin) 8 Mg Tab 8 MG PO DAILY #30 Ref 0 TAB Losartan (Losartan) 100 Mg Tab 100 MG PO DAILY Blood Pressure Management #30 Ref 0 TAB Ruba Corbett MD Nov 10, 2016 13:43
== END 2016-11-10 13:32 | disposition home or self-care (01) | DRG 682 ==
LOC: NEPE 16:17 → NEDA 18:16 → N06A 20:51
PROVIDERS: ADMIT Hospitalist; ATTEND Hospitalist
PROC: 30233N1 Transfusion of Nonautologous Red Blood Cells into Peripheral Vein, Percutaneous Approach (ICD-10-PCS; principal; 2016-11-05)
PROC: 05HM33Z Insertion of Infusion Device into Right Internal Jugular Vein, Percutaneous Approach (ICD-10-PCS; 2016-11-06)
PROC: 5A1D60Z (ICD-10-PCS; 2016-11-07)
DX: I12.0 Hypertensive chronic kidney disease with stage 5 chronic kidney disease or end stage renal disease (principal); N18.6 End stage renal disease; K92.2 Gastrointestinal hemorrhage, unspecified; D50.0 Iron deficiency anemia secondary to blood loss (chronic); D63.1 Anemia in chronic kidney disease; F17.210 Nicotine dependence, cigarettes, uncomplicated; R53.1 Weakness; Z99.2 Dependence on renal dialysis
CPT/HCPCS: 36430; 36558; 76937; 77001; 80048; 80053; 80069; 80074; 82728; 83540; 83550; 83735; 83883; 85025; 85610; 85730; 86850; 86900; 86901; 86920; 90935; 93005; 93970; 93998; 96374; 96375; C1750; C1769; C9113; J1580; J1644; J1756; J3370; J7030; J7050; P9016; Q4081